=== PATIENT | male | born 1960 | race Caucasian/White ===

== ENCOUNTER 2021-04-05 15:44 | Observation (INO) ==
[2021-04-05 20:13] LABS: Basophils # (auto) 0.02 K/uL (0-0.2); Basophils % (auto) 0.1 %; Eosinophils # (auto) 0.05 K/uL (0-0.5); Eosinophils % (auto) 0.3 %; Hematocrit (blood only) 46.9 % (42-52); Hemoglobin 15.4 g/dL (14.0-18.0); Immature Granulocytes # (auto) 0.04 K/uL (0.00-0.02); Immature Granulocytes % (auto) 0.2 %; Lymphocytes # (auto) 1.83 K/uL (1.2-3.4); Lymphocytes % (auto) 9.6 %; Mean Corpuscular Hgb Conc 32.8 g/dL (32-36); Mean Corpuscular Volume 94.6 fL (80-100); Mean Platelet Volume 9.2 fL (7.4-10.4); Monocytes # (auto) 1.76 K/uL (0.11-0.59); Monocytes % (auto) 9.2 %; Neutrophils # (auto) 15.46 K/uL (1.4-6.5); Neutrophils % (auto) 80.6 %; Platelet Count 243 K/uL (130-400); RDW Coefficient of Variation 12.6 % (11.5-14.5); RDW Standard Deviation 43.5 fL (36.4-46.3); Red Blood Count 4.96 M/uL (4.7-6.1); White Blood Count 19.16 K/uL (4.8-10.8)
[2021-04-05 20:45] LABS: BUN Creatinine Ratio 21.1 (10-20); Calcium 9.3 mg/dl (8.5-10.1); Creatinine Clr Calc Pharmacy 79.8 ml/min; Est GFR (African American) 97.8 ml/min; Est GFR (Non-African American) 84.4 ml/min; Potassium 4.4 mmol/L (3.5-5.1)
[2021-04-05 20:48] LABS: Albumin Globulin Ratio 0.7 (0.9-2); Bilirubin,Total 1.2 mg/dl (0.2-1); Globulin 4.5 gm/dl (2.5-4.0); Total Protein 7.5 gm/dl (6.4-8.2)
[2021-04-05 20:59] LABS: Appearance Urine Clear (Clear); Bacteria Urine Automated Negative (Negative); Bilirubin Urine Negative (Negative); Blood Urine Negative (Negative); Color Urine Dark Yellow; Epithelial Cell Urine Auto 20-30 /lpf (0-5); Glucose Urine UA Negative (Negative); Ketones Urine 2+ (Negative); Leukocyte Esterase Urine Trace (Negative); Nitrite Urine Negative (Negative); Protein Urine 2+ (Negative); Specific Gravity Urine 1.028 (1.000-1.030); Urobilinogen Urine Positive (Negative)
[2021-04-05] MEDS ORDERED: ONDANSETRON INJ 2 MG/ML 2 ML VIAL IV STA (21:37)
[2021-04-05] MEDS ORDERED: SODIUM CHLORIDE 0.9% 1000ML 1,000 ML IV SCH (21:45)
--- NOTE | 2021-04-05 21:46 | Emergency Department Note ---
History of Present Illness General Chief complaint: Abdominal Pain Stated complaint: ABDOMINAL PAIN, APPENDIX OR GALLBLADDER Time Seen by Provider: 04/05/21 21:32 History of Present Illness Maximum Pain Intensity: 7 This is a 61-year-old male presenting to the emergency department for evaluation of right-sided abdominal pain that began 3 or 4 days ago. The patient does not have a history of abdominal surgery. He is currently incarcerated at [facility]. The patient has had some ibuprofen with mild improvement of symptoms today. He has not had anything to eat since breakfast as eating and drinking seems to make his symptoms worse. The patient has not had known COVID-19 infection in the past, and is vaccinated. The patient is usually healthy taking medication for GERD and to help with sleep at night. He rates his discomfort a 7/10, dull, and nonradiating on the right side of his abdomen. Home Medications Medication Instructions Recorded Confirmed Type aspirin 81 mg tablet,delayed 81 mg PO DAILY 04/05/21 04/05/21 History release levalbuterol tartrate 45 2 inh INHALATION Q4H PRN 04/05/21 04/05/21 History mcg/actuation aerosol inhaler (Xopenex HFA) omeprazole 20 mg capsule,delayed 20 mg PO DAILY 04/05/21 04/05/21 History release prazosin 1 mg capsule 1 mg PO HS 04/05/21 04/05/21 History prazosin 2 mg capsule 2 mg PO HS 04/05/21 04/05/21 History prazosin 5 mg capsule 5 mg PO HS 04/05/21 04/05/21 History trazodone 50 mg tablet 50 mg PO HS 04/05/21 04/05/21 History Allergies Allergy/AdvReac Type Severity Reaction Status Date / Time acetaminophen [From Tylenol] AdvReac Intermediate ABD PAIN, Verified 04/05/21 21:55 CRAMPING Past Med/Surg History Medical History GERD (gastroesophageal reflux disease) Under care of retirement service Surgical History No significant past surgical history Social History Smoking Status: Former smoker Hx Alcohol Use: No Hx Substance Use: No Preferred Language: Mohawk Communication Ability: Effective Javascript Application Developer Required: No Beliefs That Will Affect Care: None Current Living Situation: Other Current Living Situation Comment: correctional facility Other Information That Helps Us Care for You: No Feels Safe at Home: Yes Safety Concerns: Feels Safe At This Time Assistive Devices: None Review of Systems A total of 10 systems reviewed and were otherwise negative Physical Exam Vital Signs Vital Signs - 24 hr 04/05/21 16:19 04/05/21 23:28 Pulse Rate 79 84 Respiratory Rate 20 17 Respiratory Effort / Characteristics Non-Labored Spontaneous Respiratory Depth Normal Blood Pressure 131/82 148/88 H Blood Pressure Mean 98 108 Blood Pressure Position Sitting Pulse Oximetry 97 95 Oxygen Delivery Method Room Air Sepsis Recent Fever Within 48 Hours No Sepsis New/Unexplained Change in Mental Status N/A Sepsis Action Taken by Nursing No Action Required VITALS: Vitals are noted on the nurse's note and reviewed by myself. Vital signs stable. GENERAL: Well-developed, well-nourished, white male, who is in no acute distress and resting comfortably. Patient is cooperative with the examination. 2 corrections officers are present at bedside. HEAD: Normocephalic atraumatic. HEART: Regular rate and rhythm without murmurs gallops or rubs. LUNGS: Clear to auscultation bilaterally without wheezes, rales or rhonchi. No retractions or accessory muscle use. ABDOMEN: Positive normal bowel sounds x 4. Soft with distinct right-sided tenderness. MUSCULOSKELETAL: No muscle atrophy, erythema, or edema noted. Full range of motion in all extremities. NEURO: Patient was alert and oriented to person place and time. CN II through XII grossly intact. Course Administered Medications Enoxaparin Sodium (Enoxaparin Inj 40 Mg/0.4 Ml Syr) 40 mg SQ DAILY [facility] Stop: 05/06/21 03:14 Last Admin: 04/06/21 03:20 Dose: Not Given Documented by: [id number] Piperacillin Sod/Tazobactam (Sod 3.375 gm/ Dextrose) 115 mls @ 28.75 mls/hr IV Q8H [facility]; Protocol Stop: 04/16/21 07:59 Last Admin: 04/06/21 08:00 Dose: 28.8 mls/hr Documented by: Lactated Ringer's (Lr) 1,000 mls @ 100 mls/hr IV .Q10H [facility] Stop: 05/06/21 02:59 Last Admin: 04/06/21 03:52 Dose: 100 mls/hr Documented by: [id number] Ibuprofen (Ibuprofen 800 Mg Tab) 800 mg PO TID PRN PRN Reason: Fever Stop: 05/06/21 02:57 Last Admin: 04/06/21 03:37 Dose: 800 mg Documented by: [id number] Morphine Sulfate (Morphine Sulfate 4 Mg/Ml 1 Ml Carp\Vial) 4 mg IV Q30M PRN PRN Reason: Pain Stop: 04/19/21 21:36 Last Admin: 04/06/21 00:54 Dose: 4 mg Documented by: [id number] Admin: 04/05/21 21:51 Dose: 4 mg Documented by: [id number] Morphine Sulfate (Morphine Sulfate 4 Mg/Ml 1 Ml Carp\Vial) 4 mg IV Q3H PRN PRN Reason: Pain (6,7,8,9,10) Stop: 04/20/21 02:13 Last Admin: 04/06/21 03:37 Dose: 4 mg Documented by: [id number] Discontinued Medications Sodium Chloride (Nss 1000ml) 1,000 mls @ 999 mls/hr IV .Q1H1M MARITZA Stop: 04/05/21 22:45 Last Infusion: 04/05/21 22:38 Dose: 0 mls/hr Documented by: [id number] Admin: 04/05/21 21:51 Dose: 999 mls/hr Documented by: [id number] Cefoxitin Sodium (Mefoxin) 2,000 mg in 60 mls @ 100 mls/hr IV NOW STA Stop: 04/05/21 23:15 Last Infusion: 04/06/21 00:54 Dose: 100 mls/hr Documented by: [id number] Admin: 04/05/21 23:42 Dose: 100 mls/hr Documented by: [id number] Piperacillin Sod/Tazobactam (Sod 4.5 gm/ Dextrose) 120 mls @ 200 mls/hr IV NOW ONE; Protocol Stop: 04/06/21 03:35 Last Infusion: 04/06/21 03:45 Dose: 0 mls/hr Documented by: [id number] Admin: 04/06/21 03:08 Dose: 200 mls/hr Documented by: [id number] Ondansetron HCl (Ondansetron Inj 2 Mg/Ml 2 Ml Vial) 4 mg IV NOW STA Stop: 04/05/21 21:38 Last Admin: 04/05/21 21:51 Dose: 4 mg Documented by: [id number] Medical Decision Making Differential Diagnosis Differential diagnosis: Etiologies such as biliary colic, cholecystitis, hepatitis, pancreatitis, cardiac disease, pancreatitis, gastritis, peptic ulcer disease, appendicitis, cystitis, diverticulitis, mesenteric ischemia, inflammatory bowel disease, ileus, bowel obstruction, testicular/adnexal torsion, aortic pathology, shingles, as well as others were considered Laboratory Data Result diagrams: 04/06/21 06:34 04/06/21 06:34 Lab Results 04/05/21 04/05/21 04/05/21 Range/Units 19:48 19:48 21:53 WBC 19.16 H (4.8-10.8) K/uL RBC 4.96 (4.7-6.1) M/uL Hgb 15.4 (14.0-18.0) g/dL Hct 46.9 (42-52) % MCV 94.6 (80-100) fL MCH 31.0 (25-34) pg MCHC 32.8 (32-36) g/dL RDW Std Deviation 43.5 (36.4-46.3) fL RDW Coeff of Luz Maria 12.6 (11.5-14.5) % Plt Count 243 (130-400) K/uL MPV 9.2 (7.4-10.4) fL Immature Gran % (Auto) 0.2 % Neut % (Auto) 80.6 % Lymph % (Auto) 9.6 % [place] % (Auto) 9.2 % Eos % (Auto) 0.3 % Baso % (Auto) 0.1 % Neut # (Auto) 15.46 H (1.4-6.5) K/uL Lymph # (Auto) 1.83 (1.2-3.4) K/uL [place] # (Auto) 1.76 H (0.11-0.59) K/uL Eos # (Auto) 0.05 (0-0.5) K/uL Baso # (Auto) 0.02 (0-0.2) K/uL Immature Gran # (Auto) 0.04 H (0.00-0.02) K/uL Sodium 137 (136-145) mmol/L Potassium 4.4 (3.5-5.1) mmol/L Chloride 105 (98-107) mmol/L Carbon Dioxide 25 (21-32) mmol/L Anion Gap 7.0 (3-11) BUN 20 H (7-18) mg/dl Creatinine 0.96 (0.6-1.4) mg/dl Est Cr Clr Drug Dosing 79.8 ml/min Est GFR ( Amer) 97.8 ml/min Est GFR (Non-Af Amer) 84.4 ml/min BUN/Creatinine Ratio 21.1 H (10-20) Glucose 97 (70-99) mg/dl Calcium 9.3 (8.5-10.1) mg/dl Total Bilirubin 1.2 H (0.2-1) mg/dl AST 17 (15-37) U/L ALT 21 (12-78) U/L Alkaline Phosphatase 73 (45-117) U/L Total Protein 7.5 (6.4-8.2) gm/dl Albumin 3.0 L (3.4-5.0) gm/dl Globulin 4.5 H (2.5-4.0) gm/dl Albumin/Globulin Ratio 0.7 L (0.9-2) Amylase 38 (25-115) U/L Lipase 103 (73-393) U/L COVID-19 Eval Order Covid19 at [facility] SARS-CoV-2 (PCR) (Negative) 04/05/21 Range/Units 21:53 WBC (4.8-10.8) K/uL RBC (4.7-6.1) M/uL Hgb (14.0-18.0) g/dL Hct (42-52) % MCV (80-100) fL MCH (25-34) pg MCHC (32-36) g/dL RDW Std Deviation (36.4-46.3) fL RDW Coeff of Luz Maria (11.5-14.5) % Plt Count (130-400) K/uL MPV (7.4-10.4) fL Immature Gran % (Auto) % Neut % (Auto) % Lymph % (Auto) % [place] % (Auto) % Eos % (Auto) % Baso % (Auto) % Neut # (Auto) (1.4-6.5) K/uL Lymph # (Auto) (1.2-3.4) K/uL [place] # (Auto) (0.11-0.59) K/uL Eos # (Auto) (0-0.5) K/uL Baso # (Auto) (0-0.2) K/uL Immature Gran # (Auto) (0.00-0.02) K/uL Sodium (136-145) mmol/L Potassium (3.5-5.1) mmol/L Chloride (98-107) mmol/L Carbon Dioxide (21-32) mmol/L Anion Gap (3-11) BUN (7-18) mg/dl Creatinine (0.6-1.4) mg/dl Est Cr Clr Drug Dosing ml/min Est GFR ( Amer) ml/min Est GFR (Non-Af Amer) ml/min BUN/Creatinine Ratio (10-20) Glucose (70-99) mg/dl Calcium (8.5-10.1) mg/dl Total Bilirubin (0.2-1) mg/dl AST (15-37) U/L ALT (12-78) U/L Alkaline Phosphatase (45-117) U/L Total Protein (6.4-8.2) gm/dl Albumin (3.4-5.0) gm/dl Globulin (2.5-4.0) gm/dl Albumin/Globulin Ratio (0.9-2) Amylase (25-115) U/L Lipase (73-393) U/L COVID-19 Eval Order SARS-CoV-2 (PCR) NEGATIVE (Negative) Imaging Data Radiologist's Impression: Abdomen/Pelvis CT 04/05/21 21:37 CT abd pelvis wo con CLINICAL INDICATION: Right-sided abdominal pain. TECHNIQUE: Helical axial images of the abdomen and pelvis were obtained and displayed at 5 and 1 mm intervals. Automated dose lowering techniques and/or adjustment according to patient size were utilized for this exam. This exam was performed with intravenous contrast. COMPARISON: None available at the time of this dictation. FINDINGS: Lower chest: Bibasilar atelectasis is seen. Liver: Unremarkable. No focal lesions are seen. Gallbladder and biliary tree: There is diffuse enlargement and wall thickening of the gallbladder. The wall measures approximately 7 mm in diameter. A large gallstone is seen at the gallbladder neck. No intra- or extrahepatic biliary ductal dilation. Pancreas: Unremarkable, no focal lesions. Spleen: Unremarkable. Adrenals: Unremarkable. Kidneys and ureters: Unremarkable. Bladder: Unremarkable. Reproductive organs: Prostatic calcifications are seen which may represent prior hemorrhage or granulomatous disease. Prostatomegaly is seen. Bowel: Unremarkable. Lymph nodes Retroperitoneal: Unremarkable. Mesenteric: Unremarkable. Pelvic: Unremarkable. Peritoneum: Normal Vessels: Atherosclerotic calcifications are seen. Abdominal wall: Unremarkable. Bones: Degenerative changes in the visualized spine. Levoscoliosis is seen in the lumbar spine. IMPRESSION: Cholecystitis with gallstone noted in the gallbladder neck. ACT 112: Negative or not required by law. Electronically signed by: Anson Padilla M.D. 04/06/2021 7:09 AM MDM Narrative Physical exam and history were performed. Nursing notes, EMR, and Medication List were personally reviewed. Patient appears to have right-sided abdominal pain bringing him to the ER. The patient presents to the department during a period of very high ER volume and extended wait times. Nursing protocol orders have been initiated prior to my evaluation of care, and he is noted to have a white blood cell count elevation at 19,000. On exam he is tender in the right side abdomen, and it is difficult to discern whether this is true right upper quadrant or right lower quadrant. Regardless IV access was established and labs were obtained. He was hydrated with normal saline and given IV morphine and IV Zofran for comfort. Covid swab is performed and the patient was sent to CT scan for further evaluation of his symptoms. CT scan is performed and reviewed by myself and radiology. CT scan does reveal acute cholecystitis. The case was discussed with the on-call general surgeon, Dr. Alford, who will evaluate the patient at bedside. Covid swab was performed. The patient was started on Mefoxin here in the ER. Please see the surgical note for further patient course, plan, and disposition. The chart was completed utilizing [employer] Voice Recognition Software. Grammatical errors, random word insertions, pronoun errors, and incomplete sentences are an occasional consequence of this system due to software limitations, ambient noise, and hardware issues. Any formal questions or concerns about the content, text, or information contained within the body of this dictation should be directly addressed to the provider for clarification. . Impression & Plan Acute cholecystitis Discharge Plan Visit Data Chief Complaint: Abdominal Pain Stated Complaint: ABDOMINAL PAIN, APPENDIX OR GALLBLADDER ED Provider: Elijah Linares ED Midlevel Provider: Blaine Reilly Discharge Problem: Acute cholecystitis Patient Disposition: Admitted As Inpatient Discharge Instructions Interventions: ED Discharge Assessment Last Done: 04/06/21 02:00
[2021-04-05] MEDS: MoRPHine SULFATE 4 MG/ML 1 ML CARP\\VIAL IV PRN (21:51)
[2021-04-05] MEDS ORDERED: cefOXitin 2,000 MG/60 ML BAG IV STA (22:40)
--- NOTE | 2021-04-06 00:04 | History & Physical Report ---
Date of Service April 06, 2021 Assessment & Plan (1) Acute cholecystitis: Plan: 61-year-old gentleman with acute cholecystitis. I discussed the risks and benefits of a laparoscopic cholecystectomy, possible open. The risks include: Bleeding, infection, leak, obstruction, injury to the surrounding structures including the common bile duct, need for open or further procedures, diarrhea. All his questions were answered, and he is agreeable to proceed. We will admit him to the hospital, place him on IV fluids, antibiotics, pain control. We will take him to the operating room at the earliest convenience in the morning. History of Present Illness Chief Complaint: Acute cholecystitis Primary Care Provider: DONNA Osito 61-year-old gentleman presents with 4-day history of right upper quadrant pain. He noted some chills. He also noted a mass in his right upper quadrant. He denies nausea or vomiting. He has never had symptoms like this in the past. He denies acholic stools, pruritus, chest pain, shortness of breath. He denies dark urine or jaundice. He is having normal bowel movements. A CT scan demonstrates significant inflammation around the gallbladder, distended gallbladder, large stone. Allergies Allergy/AdvReac Type Severity Reaction Status Date / Time acetaminophen [From Tylenol] AdvReac Intermediate ABD PAIN, Verified 04/05/21 21:55 CRAMPING Home Medications Medication Instructions Recorded Confirmed Type aspirin 81 mg tablet,delayed 81 mg PO DAILY 04/05/21 04/05/21 History release levalbuterol tartrate 45 2 inh INHALATION Q4H PRN 04/05/21 04/05/21 History mcg/actuation aerosol inhaler (Xopenex HFA) omeprazole 20 mg capsule,delayed 20 mg PO DAILY 04/05/21 04/05/21 History release prazosin 1 mg capsule 1 mg PO HS 04/05/21 04/05/21 History prazosin 2 mg capsule 2 mg PO HS 04/05/21 04/05/21 History prazosin 5 mg capsule 5 mg PO HS 04/05/21 04/05/21 History trazodone 50 mg tablet 50 mg PO HS 04/05/21 04/05/21 History Past Med/Surg History Medical History GERD (gastroesophageal reflux disease) Under care of nursing home service Surgical History No significant past surgical history Social History Smoking Status: Former smoker Feels Safe at Home: Yes Review of Systems Review of Systems: All systems reviewed & are unremarkable except as noted in HPI & below Physical Exam Constitutional: WD/WN, vitals as above Eyes: PERRL, conjunctivae normal, anicteric sclerae Neck: trachea midline, no thyromegaly Respiratory: normal respiratory effort, lungs clear to auscultation Cardiovascular: RRR, no murmur, no edema Gastrointestinal (Abdomen): Inspection/Auscultation: abdomen normal to inspection; abdomen not distended Percussion/Palpation: + abdomen tender (Right upper quadrant), abdomen soft and + abdominal mass (Right upper quadrant); no guarding and abdomen not rigid Musculoskeletal: Extremities: no cyanosis and no clubbing Skin: no rashes, warm and dry Psychiatric: A+Ox3, euthymic affect Results & Data Results & Data ([facility]) Vital Signs (Past 12 Hours) Vital Signs Pulse Resp BP Pulse Ox 04/05/21 23:28 84 17 148/88 H 95 04/05/21 16:19 79 20 131/82 97 Laboratory Results 04/05/21 04/05/21 04/05/21 Range/Units Unknown 21:53 21:53 WBC (4.8-10.8) K/uL RBC (4.7-6.1) M/uL Hgb (14.0-18.0) g/dL Hct (42-52) % MCV (80-100) fL MCH (25-34) pg MCHC (32-36) g/dL RDW Std Deviation (36.4-46.3) fL RDW Coeff of Luz Maria (11.5-14.5) % Plt Count (130-400) K/uL MPV (7.4-10.4) fL Immature Gran % (Auto) % Neut % (Auto) % Lymph % (Auto) % [place] % (Auto) % Eos % (Auto) % Baso % (Auto) % Neut # (Auto) (1.4-6.5) K/uL Lymph # (Auto) (1.2-3.4) K/uL [place] # (Auto) (0.11-0.59) K/uL Eos # (Auto) (0-0.5) K/uL Baso # (Auto) (0-0.2) K/uL Immature Gran # (Auto) (0.00-0.02) K/uL Sodium (136-145) mmol/L Potassium (3.5-5.1) mmol/L Chloride (98-107) mmol/L Carbon Dioxide (21-32) mmol/L Anion Gap (3-11) BUN (7-18) mg/dl Creatinine (0.6-1.4) mg/dl Est Cr Clr Drug Dosing ml/min Est GFR ( Amer) ml/min Est GFR (Non-Af Amer) ml/min BUN/Creatinine Ratio (10-20) Glucose (70-99) mg/dl Calcium (8.5-10.1) mg/dl Total Bilirubin (0.2-1) mg/dl AST (15-37) U/L ALT (12-78) U/L Alkaline Phosphatase (45-117) U/L Total Protein (6.4-8.2) gm/dl Albumin (3.4-5.0) gm/dl Globulin (2.5-4.0) gm/dl Albumin/Globulin Ratio (0.9-2) Amylase (25-115) U/L Lipase (73-393) U/L Urine Color Dark Yellow Urine Appearance Clear (Clear) Urine pH 7.0 (4.5-7.5) Ur Specific [place] 1.028 (1.000-1.030) Urine Protein 2+ H (Negative) Urine Glucose (UA) Negative (Negative) Urine Ketones 2+ H (Negative) Urine Blood Negative (Negative) Urine Nitrite Negative (Negative) Urine Bilirubin Negative (Negative) Urine Urobilinogen Positive H (Negative) Ur Leukocyte Esterase Trace H (Negative) Urine WBC (Auto) 1-5 (0-5) /hpf Urine RBC (Auto) 5-10 H (0-4) /hpf U Hyaline Cast (Auto) 1-5 (0-5) /lpf U Epithel Cells (Auto) 20-30 H (0-5) /lpf Urine Bacteria (Auto) Negative (Negative) COVID-19 Eval Order Covid19 at [facility] SARS-CoV-2 (PCR) NEGATIVE (Negative) 04/05/21 04/05/21 Range/Units 19:48 19:48 WBC 19.16 H (4.8-10.8) K/uL RBC 4.96 (4.7-6.1) M/uL Hgb 15.4 (14.0-18.0) g/dL Hct 46.9 (42-52) % MCV 94.6 (80-100) fL MCH 31.0 (25-34) pg MCHC 32.8 (32-36) g/dL RDW Std Deviation 43.5 (36.4-46.3) fL RDW Coeff of Luz Maria 12.6 (11.5-14.5) % Plt Count 243 (130-400) K/uL MPV 9.2 (7.4-10.4) fL Immature Gran % (Auto) 0.2 % Neut % (Auto) 80.6 % Lymph % (Auto) 9.6 % [place] % (Auto) 9.2 % Eos % (Auto) 0.3 % Baso % (Auto) 0.1 % Neut # (Auto) 15.46 H (1.4-6.5) K/uL Lymph # (Auto) 1.83 (1.2-3.4) K/uL [place] # (Auto) 1.76 H (0.11-0.59) K/uL Eos # (Auto) 0.05 (0-0.5) K/uL Baso # (Auto) 0.02 (0-0.2) K/uL Immature Gran # (Auto) 0.04 H (0.00-0.02) K/uL Sodium 137 (136-145) mmol/L Potassium 4.4 (3.5-5.1) mmol/L Chloride 105 (98-107) mmol/L Carbon Dioxide 25 (21-32) mmol/L Anion Gap 7.0 (3-11) BUN 20 H (7-18) mg/dl Creatinine 0.96 (0.6-1.4) mg/dl Est Cr Clr Drug Dosing 79.8 ml/min Est GFR ( Amer) 97.8 ml/min Est GFR (Non-Af Amer) 84.4 ml/min BUN/Creatinine Ratio 21.1 H (10-20) Glucose 97 (70-99) mg/dl Calcium 9.3 (8.5-10.1) mg/dl Total Bilirubin 1.2 H (0.2-1) mg/dl AST 17 (15-37) U/L ALT 21 (12-78) U/L Alkaline Phosphatase 73 (45-117) U/L Total Protein 7.5 (6.4-8.2) gm/dl Albumin 3.0 L (3.4-5.0) gm/dl Globulin 4.5 H (2.5-4.0) gm/dl Albumin/Globulin Ratio 0.7 L (0.9-2) Amylase 38 (25-115) U/L Lipase 103 (73-393) U/L Urine Color Urine Appearance (Clear) Urine pH (4.5-7.5) Ur Specific [place] (1.000-1.030) Urine Protein (Negative) Urine Glucose (UA) (Negative) Urine Ketones (Negative) Urine Blood (Negative) Urine Nitrite (Negative) Urine Bilirubin (Negative) Urine Urobilinogen (Negative) Ur Leukocyte Esterase (Negative) Urine WBC (Auto) (0-5) /hpf Urine RBC (Auto) (0-4) /hpf U Hyaline Cast (Auto) (0-5) /lpf U Epithel Cells (Auto) (0-5) /lpf Urine Bacteria (Auto) (Negative) COVID-19 Eval Order SARS-CoV-2 (PCR) (Negative) Code Status & VTE Plan VTE Prophylaxis Plan VTE Prophylaxis will be ordered: Yes
[2021-04-06] MEDS: MoRPHine SULFATE 4 MG/ML 1 ML CARP\\VIAL IV PRN (00:54)
[2021-04-06] MEDS ORDERED: diphenhydrAMINE Capsule 25 MG CAP PO PRN (02:14)
[2021-04-06] MEDS ORDERED: PIPERACILL/TAZOBAC CONSULT ACTIVE PRN (02:14)
[2021-04-06] MEDS ORDERED: ONDANSETRON INJ 2 MG/ML 2 ML VIAL IV PRN ×2 (02:14→08:37)
[2021-04-06] MEDS ORDERED: MoRPHine SULFATE 4 MG/ML 1 ML CARP\\VIAL IV PRN (02:14)
[2021-04-06] MEDS ORDERED: PIPERACILLIN/TAZOBACTAM 4.5 GM in DEXTROSE 5% 100 ML IV ONE (03:00)
[2021-04-06] MEDS: ENOXAPARIN INJ 40 MG/0.4 ML SYR SQ SCH (03:20)
[2021-04-06] MEDS: IBUPROFEN 800 MG TAB PO PRN ×3 (03:37→21:23)
[2021-04-06] MEDS: LACTATED RINGER'S 1,000 ML IV SCH ×3 (03:52→23:12)
[2021-04-06] MEDS ORDERED: ACETAMINOPHEN 1000 MG/100 ML IV IV ONE (06:32)
[2021-04-06 06:58] LABS: Basophils # (auto) 0.02 K/uL (0-0.2); Basophils % (auto) 0.1 %; Eosinophils # (auto) 0.02 K/uL (0-0.5); Eosinophils % (auto) 0.1 %; Hematocrit (blood only) 42.4 % (42-52); Hemoglobin 13.8 g/dL (14.0-18.0); Immature Granulocytes # (auto) 0.03 K/uL (0.00-0.02); Immature Granulocytes % (auto) 0.2 %; Lymphocytes # (auto) 1.58 K/uL (1.2-3.4); Lymphocytes % (auto) 10.1 %; Mean Corpuscular Hemoglobin 31.1 pg (25-34); Mean Corpuscular Hgb Conc 32.5 g/dL (32-36); Mean Corpuscular Volume 95.5 fL (80-100); Mean Platelet Volume 9.1 fL (7.4-10.4); Monocytes # (auto) 1.44 K/uL (0.11-0.59); Monocytes % (auto) 9.2 %; Neutrophils # (auto) 12.58 K/uL (1.4-6.5); Neutrophils % (auto) 80.3 %; Platelet Count 235 K/uL (130-400); RDW Coefficient of Variation 12.6 % (11.5-14.5); RDW Standard Deviation 44.1 fL (36.4-46.3); Red Blood Count 4.44 M/uL (4.7-6.1); White Blood Count 15.67 K/uL (4.8-10.8)
--- NOTE | 2021-04-06 07:10 | CT Scan Report ---
CT abd pelvis wo con CLINICAL INDICATION: Right-sided abdominal pain. TECHNIQUE: Helical axial images of the abdomen and pelvis were obtained and displayed at 5 and 1 mm i ntervals. Automated dose lowering techniques and/or adjustment according to patient size were utilize d for this exam. This exam was performed with intravenous contrast. COMPARISON: None available at the time of this dictation. FINDINGS: Lower chest: Bibasilar atelectasis is seen. Liver: Unremarkable. No focal lesions are seen. Gallbladder and biliary tree: There is diffuse enlargement and wall thickening of the gallbladder. Th e wall measures approximately 7 mm in diameter. A large gallstone is seen at the gallbladder neck. No intra- or extrahepatic biliary ductal dilation. Pancreas: Unremarkable, no focal lesions. Spleen: Unremarkable. Adrenals: Unremarkable. Kidneys and ureters: Unremarkable. Bladder: Unremarkable. Reproductive organs: Prostatic calcifications are seen which may represent prior hemorrhage or granul omatous disease. Prostatomegaly is seen. Bowel: Unremarkable. Lymph nodes Retroperitoneal: Unremarkable. Mesenteric: Unremarkable. Pelvic: Unremarkable. Peritoneum: Normal Vessels: Atherosclerotic calcifications are seen. Abdominal wall: Unremarkable. Bones: Degenerative changes in the visualized spine. Levoscoliosis is seen in the lumbar spine. IMPRESSION: Cholecystitis with gallstone noted in the gallbladder neck. ACT 112: Negative or not required by law. Electronically signed by: Anson Padilla M.D. 04/06/2021 7:09 AM
[2021-04-06 07:33] LABS: Albumin Level 2.5 gm/dl (3.4-5.0); BUN Creatinine Ratio 15.9 (10-20); Calcium 8.7 mg/dl (8.5-10.1); Est GFR (Non-African American) 70.8 ml/min
[2021-04-06 07:36] LABS: Albumin Globulin Ratio 0.6 (0.9-2); Bilirubin,Total 1.6 mg/dl (0.2-1); Globulin 4.2 gm/dl (2.5-4.0); Total Protein 6.7 gm/dl (6.4-8.2)
[2021-04-06] MEDS: PIPERACILLIN/TAZOBACTAM 3.375 GM in DEXTROSE 5% 100 ML IV SCH ×3 (08:00→23:12)
[2021-04-06] MEDS ORDERED: HYDROmorphone INJ 1 MG/ML SYRINGE IV PRN (08:37)
[2021-04-06] MEDS ORDERED: PROMETHAZINE HCL 12.5 MG in SODIUM CHLORIDE 0.9% 50 ML IV PRN (08:37)
[2021-04-06] MEDS ORDERED: ATROPINE SULFATE 0.1 MG/ML 10ML SYR IV PRN (08:37)
[2021-04-06] MEDS ORDERED: ePHEDrine sulfate 50 MG/ML AMP IV PRN (08:37)
--- NOTE | 2021-04-06 08:38 | Anesthesiology Consultation ---
Date of Service April 06, 2021 Assessment & Plan (1) Encounter for pre-operative examination: Chart Review Chart Review: Acceptable Risk for Surgery and Patient NOT seen in Pre Admission Testing Consults Requested none History Surgery Operation Date: 04/06/21 08:20 Proposed Procedures p Laparoscopic Cholecystectomy - Pro Alford MD Height/Weight Height: 5 ft 9 in Weight: 77.1 kg Allergies Allergy/AdvReac Type Severity Reaction Status Date / Time acetaminophen [From Tylenol] AdvReac Intermediate ABD PAIN, Verified 04/05/21 21:55 CRAMPING Medications Home Medications Medication Instructions Recorded Confirmed Last Taken aspirin 81 mg tablet,delayed 81 mg PO DAILY 04/05/21 04/05/21 03/23/21 release levalbuterol tartrate 45 2 inh INHALATION Q4H PRN 04/05/21 04/05/21 Unknown mcg/actuation aerosol inhaler (Xopenex HFA) omeprazole 20 mg capsule,delayed 20 mg PO DAILY 04/05/21 04/05/21 03/23/21 release prazosin 1 mg capsule 1 mg PO HS 04/05/21 04/05/21 04/04/21 prazosin 2 mg capsule 2 mg PO HS 04/05/21 04/05/21 04/04/21 prazosin 5 mg capsule 5 mg PO HS 04/05/21 04/05/21 04/04/21 trazodone 50 mg tablet 50 mg PO HS 04/05/21 04/05/21 04/04/21 Active Medications Generic Name Dose Route Start Last Admin Trade Name Freq PRN Reason Stop Dose Admin Enoxaparin Sodium 40 mg 04/06/21 03:15 04/06/21 03:20 Enoxaparin Inj 40 Mg/0.4 Ml Syr SQ 05/06/21 03:14 Not Given DAILY MARITZA Piperacillin Sod/Tazobactam 115 mls @ 28.75 mls/hr 04/06/21 08:00 04/06/21 08:00 Sod 3.375 gm/ Dextrose IV 04/16/21 07:59 28.8 mls/hr Q8H MARITZA Administration Protocol Lactated Ringer's 1,000 mls @ 100 mls/hr 04/06/21 03:00 04/06/21 03:52 Lr IV 05/06/21 02:59 100 mls/hr .Q10H MARITZA Administration Ibuprofen 800 mg 04/06/21 02:58 04/06/21 03:37 Ibuprofen 800 Mg Tab PO 05/06/21 02:57 800 mg TID PRN Administration Fever Morphine Sulfate 4 mg 04/05/21 21:37 04/06/21 00:54 Morphine Sulfate 4 Mg/Ml 1 Ml Carp\Vial IV 04/19/21 21:36 4 mg Q30M PRN Administration Pain Morphine Sulfate 4 mg 04/06/21 02:14 04/06/21 03:37 Morphine Sulfate 4 Mg/Ml 1 Ml Carp\Vial IV 04/20/21 02:13 4 mg Q3H PRN Administration Pain (6,7,8,9,10) NPO Date Last Intake of Fluids: 04/05/21 Time Last Intake of Fluids: 23:59 Date Last Intake of Solids: 04/05/21 Time Last Intake of Solids: 23:59 Past Medical History Medical History GERD (gastroesophageal reflux disease) Under care of [facility] service Exercise / Class Metabolic Activity II 4-5 Yardwork/Stairs/Walk up [place] Past Surgical History Surgical History No significant past surgical history bunion removal Social History Smoking Status: Former smoker Hx Alcohol Use: No Hx Substance Use: No substance use type: does not use Physical Exam Vital Signs Last Vital Signs Temp 36.5 C 04/06/21 09:43 Pulse 72 04/06/21 09:43 Resp 16 04/06/21 09:43 BP 125/79 04/06/21 09:43 Pulse Ox 98 04/06/21 09:43 Testing Laboratory Results 04/06/21 06:34 04/06/21 06:34 Urine Color Dark Yellow 04/05/21 Unknown Urine Appearance Clear (Clear) 04/05/21 Unknown Urine pH 7.0 (4.5-7.5) 04/05/21 Unknown Ur Specific [place] 1.028 (1.000-1.030) 04/05/21 Unknown Urine Protein 2+ (Negative) H 04/05/21 Unknown Urine Glucose (UA) Negative (Negative) 04/05/21 Unknown Urine Ketones 2+ (Negative) H 04/05/21 Unknown Urine Nitrite Negative (Negative) 04/05/21 Unknown Ur Leukocyte Esterase Trace (Negative) H 04/05/21 Unknown Urine WBC (Auto) 1-5 /hpf (0-5) 04/05/21 Unknown Urine RBC (Auto) 5-10 /hpf (0-4) H 04/05/21 Unknown U Hyaline Cast (Auto) 1-5 /lpf (0-5) 04/05/21 Unknown U Epithel Cells (Auto) 20-30 /lpf (0-5) H 04/05/21 Unknown Urine Bacteria (Auto) Negative (Negative) 04/05/21 Unknown Electrocardiogram Date: 04/06/21 Findings: + NSR @ normal ecg
[2021-04-06] MEDS ORDERED: BUPIVACAINE 0.25% 30 ML VIAL ONE (09:11)
[2021-04-06] MEDS ORDERED: EPINEPHrine INJ 1 MG/ML AMP ONE (09:11)
[2021-04-06] MEDS ORDERED: LIDOCAINE 2% 2 ML VIAL/AMP(20MG/ML) INFIL ONE ×2 (09:14)
[2021-04-06] MEDS ORDERED: PROPOFOL IV EMULSION 10 MG/ML 20 ML VIAL IV ONE (09:14)
[2021-04-06] MEDS ORDERED: ONDANSETRON INJ 2 MG/ML 2 ML VIAL ONE (09:14)
[2021-04-06] MEDS ORDERED: LARYING-O-JET KIT (LTA) ONE ×2 (09:14→11:08)
[2021-04-06] MEDS ORDERED: fentaNYL citrate 100 MCG/2 ML VIAL ONE ×2 (09:14→11:01)
[2021-04-06] MEDS ORDERED: ROCURONIUM BROMIDE 10 MG/ML 5 ML VIAL IV ONE ×4 (09:14→11:08)
[2021-04-06] MEDS ORDERED: MIDAZOLAM HCL 1 MG/ML 2ML VIAL ONE (09:14)
[2021-04-06] MEDS ORDERED: DEXAMETHASONE SOD INJ 4 MG/ML VIAL ONE (09:14)
--- NOTE | 2021-04-06 09:22 | Surgery Progress Note ---
Date of Service April 06, 2021 Assessment & Plan (1) Acute cholecystitis: Plan: 61-year-old gentleman with acute cholecystitis. I discussed the risks and benefits of a laparoscopic cholecystectomy, possible open. The risks include: Bleeding, infection, leak, obstruction, injury to the surrounding structures including the common bile duct, need for open or further procedures, diarrhea. All his questions were answered, and he is agreeable to proceed. To OR now for lap cholecystectomy Admission and Anticipated Discharge Date Admission Date: April 05, 2021 Subjective 61-year-old gentleman with cute cholecystitis, hospital day 2. He states that his pain is completely resolved. He denies any nausea or vomiting. He has been on antibiotics. He denies fevers or chills. Physical Exam Constitutional: WD/WN, vitals as above Eyes: PERRL, conjunctivae normal, anicteric sclerae Neck: trachea midline, no thyromegaly Respiratory: normal respiratory effort, lungs clear to auscultation Gastrointestinal (Abdomen): Inspection/Auscultation: abdomen normal to inspection; abdomen not distended Percussion/Palpation: + abdomen tender (Right upper quadrant), abdomen soft and + abdominal mass (Right upper quadrant); no guarding and abdomen not rigid Musculoskeletal: Extremities: no cyanosis and no clubbing Skin: no rashes, warm and dry Psychiatric: A+Ox3, euthymic affect Results & Data ([facility]) Vital Signs (Past 12 Hours) Vital Signs Temp Pulse Pulse Resp BP BP Pulse Ox 04/06/21 08:01 36.6 C 71 16 122/79 99 04/06/21 05:50 37.0 C 04/06/21 02:37 38.7 C H 91 H 16 154/75 H 95 04/06/21 02:00 38.7 C H 91 H 15 154/75 H 95 04/06/21 01:00 95 H 18 159/97 H 99 04/06/21 00:00 84 16 133/75 96 04/05/21 23:28 84 17 148/88 H 95
[2021-04-06] MEDS ORDERED: SURGICEL ABSORB HEMOSTAT 2IN X 14IN TOP ONE (11:07)
--- NOTE | 2021-04-06 11:26 | Post Operative Brief Note ---
Immediate Post Op Note v1 Date of Surgery April 06, 2021 Pre & Post Diagnosis Operation Date: 04/06/21 08:20 Pre-Op Diagnosis: Acute cholecystitis Post-Op Diagnosis: Acute cholecystitis I identified the patient and participated in the time-out.: Yes Procedure Operation Date: 04/06/21 08:20 Actual Procedures p Laparoscopic Cholecystectomy(Not Applicable) - Pro Alford MD Surgeon Pro Alford MD Pole Peeling Machine Operator Helper DIAMOND Mena, assisted with tissue retraction, camera operation, closure Estimated Blood Loss 15 Findings Consistent with Post-Op Diagnosis
--- NOTE | 2021-04-06 11:31 | Operative Report ---
Post Operative Report Pre & Post Diagnosis Operation Date: 04/06/21 08:20 Pre-Op Diagnosis: Acute cholecystitis Post-Op Diagnosis: Acute cholecystitis I identified the patient and participated in the time-out.: Yes Procedure Operation Date: 04/06/21 08:20 Actual Procedures p Laparoscopic Cholecystectomy(Not Applicable) - Pro Alford MD Surgeon Pro Alford MD Cable Repairer DIAMOND Mena, assisted with tissue retraction, camera operation, closure Estimated Blood Loss 15 Findings Consistent with Post-Op Diagnosis Severe acute cholecystitis, hydrops of the gallbladder with 2.5 cm stone in the neck; severe acute inflammation Specimens Gallbladder Anesthesia Type General Complications No immediate complications Indications Acute cholecystitis Description of Procedure The patient was taken to the operating room, and placed supine on the operating table. A timeout was performed, perioperative antibiotics were administered, SCD boots were placed. After adequate anesthesia and analgesia was obtained, the abdomen was prepped and draped in the normal sterile fashion. Local anesthetic was injected into and around the proposed incision sites. An incision was made with a 15 blade scalpel in the supraumbilical region and carried down to the level of the fascia. The fascia was grasped with a trach hook, and a varies needle was used to enter the abdominal cavity. The abdomen was insufflated to a pressure of 15 mmHg, and a 11 mm trocar was placed in this location. A 10 mm, 30 degree laparoscope was placed into the abdominal cavity, and the abdomen was surveyed. There was a significant inflammatory reaction in the right upper quadrant. Omentum and a loop of small bowel was adhesed to the gallbladder which appeared very distended and taut. Two 5 mm trochars were placed along the right costal margin, and one 5 mm trocar was placed in the subxiphoid region under direct visualization. The gallbladder was drained with an 18-gauge aspiration needle. The fluid was clear and then became purulent. Adhesions of the small bowel, omentum, and duodenum were taken down gently with blunt dissection and judicious use of the electrocautery. The gallbladder was grasped and retracted cephalad and laterally, exposing the triangle of [place]. Dissection began in the triangle with a combination of blunt dissection with the [place] dissector, and judicious use of the hook cautery. The cystic duct and cystic artery were dissected free circumferentially, and a critical view of safety was obtained. The cystic duct and cystic artery were clipped and transected, and the gallbladder was removed from the gallbladder fossa with the hook cautery. The camera was switched to a 5 mm, the gallbladder was placed in an Endo Catch bag, and removed via the supraumbilical port site. The camera was switched back to the 10 mm camera, and the abdomen was surveyed again. Hemostasis was checked and attended with electrocautery as well as Surgicel. The abdomen was copiously irrigated and suctioned free. Again hemostasis was checked and was excellent. All trochars were removed under direct visualization. The abdomen was desufflated. The fascia in the 11 mm port site was closed with a 0 Vicryl suture. The skin was closed with a running 4-0 Monocryl subcuticular stitch. Dermabond was applied. The patient tolerated the procedure without complication, and was transferred in stable condition to the PACU. All instrument, needle, and sponge counts were correct at the end of the case. I attest to the content of the Intraoperative Record and any orders documented therein. Any exceptions are noted below.
[2021-04-06] MEDS: fentaNYL citrate 100 MCG/2 ML VIAL IV PRN ×4 (12:21→12:36)
[2021-04-06] MEDS ORDERED: oxyCODONE/ACETAMINOPHEN 5mg/325mg TAB PO PRN (13:00)
--- NOTE | 2021-04-06 13:53 | Anesthesiology Progress Note ---
Date of Service April 06, 2021 Anesthesia Post Procedure Vital Signs Vital Signs: Temp Pulse Pulse Pulse Resp BP BP 04/06/21 13:28 80 18 04/06/21 13:04 36.9 C 69 16 04/06/21 12:55 73 17 04/06/21 12:45 72 15 04/06/21 12:35 75 16 04/06/21 12:25 73 20 04/06/21 12:15 78 16 04/06/21 12:05 77 20 04/06/21 11:55 71 17 04/06/21 11:48 36.4 C L 73 13 04/06/21 09:43 36.5 C 72 16 125/79 04/06/21 08:01 36.6 C 71 16 122/79 04/06/21 05:50 37.0 C 04/06/21 02:37 38.7 C H 91 H 16 154/75 H 04/06/21 02:00 38.7 C H 91 H 15 154/75 H 04/06/21 01:00 95 H 18 159/97 H 04/06/21 00:00 84 16 133/75 04/05/21 23:28 84 17 148/88 H 04/05/21 16:19 79 20 131/82 BP Pulse Ox 04/06/21 13:28 123/75 95 04/06/21 13:04 129/79 95 04/06/21 12:55 124/75 96 04/06/21 12:45 123/77 94 04/06/21 12:35 127/80 97 04/06/21 12:25 122/76 96 04/06/21 12:15 125/69 94 04/06/21 12:05 119/77 96 04/06/21 11:55 125/68 100 04/06/21 11:48 118/68 99 04/06/21 09:43 98 04/06/21 08:01 99 04/06/21 05:50 04/06/21 02:37 95 04/06/21 02:00 95 04/06/21 01:00 99 04/06/21 00:00 96 04/05/21 23:28 95 04/05/21 16:19 97 Pain Intensity Abdomen: Pain Intensity: 5 Transfer of Care Handoff Completed per policy Notes Mental Status: alert / awake / arousable and participated in evaluation Patient Amnestic to Procedure: Yes Nausea / Vomiting: adequately controlled Pain: adequately controlled Airway Patency, RR, SpO2: stable & adequate BP & HR: stable & adequate Hydration State: stable & adequate Anesthetic Complications: no major complications apparent and Pt Satisfied with anesthetic care
[2021-04-06] MEDS: oxyCODONE HCL IR 5 MG TAB (IMMEDIATE RELEASE) PO PRN (19:38)
[2021-04-06] MEDS: PANTOprazole 40 MG TAB PO SCH (19:39)
[2021-04-06] MEDS ORDERED: Nursing to Pharmacy Communication SCH (20:30)
[2021-04-06] MEDS ORDERED: PRAZOSIN HCL 1 MG CAP PO SCH (21:00)
[2021-04-06] MEDS ORDERED: traZODone HCL 50 MG TAB PO SCH (21:00)
[2021-04-06] MEDS: CALCIUM CARBONATE 500 MG CHEWABLE TAB PO PRN ×2 (21:23→23:21)
[2021-04-07] MEDS: oxyCODONE HCL IR 5 MG TAB (IMMEDIATE RELEASE) PO PRN ×2 (01:41→07:44)
--- NOTE | 2021-04-07 05:30 | Electrocardiogram Report ---
Test Reason : Blood Pressure : / mmHG Vent. Rate : 063 BPM Atrial Rate : 063 BPM P-R Int : 156 ms QRS Dur : 072 ms QT Int : 404 ms P-R-T Axes : 074 005 019 degrees QTc Int : 413 ms Normal sinus rhythm Normal ECG No previous ECGs available Confirmed by Wilberto Hathaway ([id number]) on 04/07/2021 5:29:51 AM Referred By: Osito THOMPSON Confirmed By:Wilberto Hathaway
[2021-04-07] MEDS: ENOXAPARIN INJ 40 MG/0.4 ML SYR SQ SCH (05:55)
[2021-04-07] MEDS: IBUPROFEN 800 MG TAB PO PRN ×2 (05:56→11:49)
[2021-04-07] MEDS: CALCIUM CARBONATE 500 MG CHEWABLE TAB PO PRN (06:02)
[2021-04-07] MEDS: LACTATED RINGER'S 1,000 ML IV SCH (07:44)
[2021-04-07] MEDS: PIPERACILLIN/TAZOBACTAM 3.375 GM in DEXTROSE 5% 100 ML IV SCH (07:44)
[2021-04-07 08:33] LABS: Hematocrit (blood only) 38.8 % (42-52); Hemoglobin 12.9 g/dL (14.0-18.0); Immature Granulocytes # (auto) 0.05 K/uL (0.00-0.02); Immature Granulocytes % (auto) 0.4 %; Lymphocytes # (auto) 1.19 K/uL (1.2-3.4); Lymphocytes % (auto) 8.4 %; Mean Corpuscular Hemoglobin 30.7 pg (25-34); Mean Corpuscular Hgb Conc 33.2 g/dL (32-36); Mean Corpuscular Volume 92.4 fL (80-100); Mean Platelet Volume 9.2 fL (7.4-10.4); Monocytes # (auto) 0.92 K/uL (0.11-0.59); Monocytes % (auto) 6.5 %; Neutrophils # (auto) 11.94 K/uL (1.4-6.5); Neutrophils % (auto) 84.7 %; Platelet Count 241 K/uL (130-400); RDW Coefficient of Variation 12.5 % (11.5-14.5); RDW Standard Deviation 42.3 fL (36.4-46.3)
[2021-04-07] MEDS: PANTOprazole 40 MG TAB PO SCH (08:34)
[2021-04-07 08:59] LABS: Albumin Level 2.2 gm/dl (3.4-5.0); BUN Creatinine Ratio 21.2 (10-20); Creatinine Clr Calc Pharmacy 82.4 ml/min; Est GFR (African American) 101.6 ml/min; Est GFR (Non-African American) 87.7 ml/min; Potassium 4.1 mmol/L (3.5-5.1)
[2021-04-07 09:11] LABS: Albumin Globulin Ratio 0.5 (0.9-2); Bilirubin,Total 0.8 mg/dl (0.2-1); Globulin 4.1 gm/dl (2.5-4.0); Total Protein 6.3 gm/dl (6.4-8.2)
--- NOTE | 2021-04-07 11:09 | Surgery Progress Note ---
Date of Service April 07, 2021 Assessment & Plan (1) Acute cholecystitis: Plan: POD # 1 s/p laparoscopic cholecystectomy -afebrile, vss - moderate postop pain controlled - no n/v Plan: Discharge back to [facility] today Rx for Percocet prn pain and Colace daily Discharge instructions reviewed f/u surgical office in 2-[address] Alford has seen and examined pt, agrees with above. Admission and Anticipated Discharge Date Admission Date: April 05, 2021 Subjective feeling better , preop pain resolved moderate pain at incision sites, controlled with Percocet and ibuprofen no n,v tolerating diet urinating without difficulty no chest pain , SOB Physical Exam Constitutional: WD/WN, vitals as above no acute distress and not ill appearing Gastrointestinal (Abdomen): Inspection/Auscultation: abdomen normal to inspection and + abdominal surgical incision (clean,dry,intact with dermabond); abdomen not distended Percussion/Palpation: + abdomen tender (RUQ and at i ncision sites) and abdomen soft; no guarding and abdomen not rigid Skin: no rashes, warm and dry Psychiatric: Orientation: alert and oriented x 3 Results & Data ([facility]) Vital Signs (Past 12 Hours) Vital Signs Temp Pulse Resp BP Pulse Ox 04/07/21 07:40 36.8 C 60 18 130/66 94 04/07/21 03:11 36.7 C 67 18 123/74 95 04/06/21 23:13 36.8 C 63 18 128/72 95 Laboratory Results 04/07/21 04/07/21 Range/Units 07:53 07:53 WBC 14.10 H (4.8-10.8) K/uL RBC 4.20 L (4.7-6.1) M/uL Hgb 12.9 L (14.0-18.0) g/dL Hct 38.8 L (42-52) % MCV 92.4 (80-100) fL MCH 30.7 (25-34) pg MCHC 33.2 (32-36) g/dL RDW Std Deviation 42.3 (36.4-46.3) fL RDW Coeff of Luz Maria 12.5 (11.5-14.5) % Plt Count 241 (130-400) K/uL MPV 9.2 (7.4-10.4) fL Immature Gran % (Auto) 0.4 % Neut % (Auto) 84.7 % Lymph % (Auto) 8.4 % [place] % (Auto) 6.5 % Eos % (Auto) 0.0 % Baso % (Auto) 0.0 % Neut # (Auto) 11.94 H (1.4-6.5) K/uL Lymph # (Auto) 1.19 L (1.2-3.4) K/uL [place] # (Auto) 0.92 H (0.11-0.59) K/uL Eos # (Auto) 0.00 (0-0.5) K/uL Baso # (Auto) 0.00 (0-0.2) K/uL Immature Gran # (Auto) 0.05 H (0.00-0.02) K/uL Sodium 139 (136-145) mmol/L Potassium 4.1 (3.5-5.1) mmol/L Chloride 107 (98-107) mmol/L Carbon Dioxide 26 (21-32) mmol/L Anion Gap 6.0 (3-11) BUN 20 H (7-18) mg/dl Creatinine 0.93 (0.6-1.4) mg/dl Est Cr Clr Drug Dosing 82.4 ml/min Est GFR ( Amer) 101.6 ml/min Est GFR (Non-Af Amer) 87.7 ml/min BUN/Creatinine Ratio 21.2 H (10-20) Glucose 135 H (70-99) mg/dl Calcium 9.0 (8.5-10.1) mg/dl Total Bilirubin 0.8 D (0.2-1) mg/dl AST 19 (15-37) U/L ALT 23 (12-78) U/L Alkaline Phosphatase 75 (45-117) U/L Total Protein 6.3 L (6.4-8.2) gm/dl Albumin 2.2 L (3.4-5.0) gm/dl Globulin 4.1 H (2.5-4.0) gm/dl Albumin/Globulin Ratio 0.5 L (0.9-2)
[2021-04-07] MEDS ORDERED: DOCUSATE SODIUM 100 MG CAP PO ONE (11:30)
--- NOTE | 2021-04-07 12:43 | Discharge Summary ---
Date of Service April 07, 2021 Admission HPI Per Admitting Provider 61-year-old gentleman presents with 4-day history of right upper quadrant pain. He noted some chills. He also noted a mass in his right upper quadrant. He denies nausea or vomiting. He has never had symptoms like this in the past. He denies acholic stools, pruritus, chest pain, shortness of breath. He denies dark urine or jaundice. He is having normal bowel movements. A CT scan demonstrates significant inflammation around the gallbladder, distended gallbladder, large stone. Principal Diagnosis Acute calculous cholecystitis Discharge Data Allergies Allergy/AdvReac Type Severity Reaction Status Date / Time acetaminophen [From Tylenol] AdvReac Intermediate ABD PAIN, Verified 04/05/21 21:55 CRAMPING Consultations 04/05/21 22:53 Consult General Surgery Stat Procedures Performed Operation Date: 04/06/21 08:20 Actual Procedures p Laparoscopic Cholecystectomy(Not Applicable) - Pro Alford MD Ordered Studies 04/05/21 21:37 CT abd pelvis wo con Urgent Hospital Course (1) Acute cholecystitis: Patient taken to operating room for laparoscopic cholecystectomy by Dr. Alford. He was found to have acute calculous cholecystitis with large gallstone and severe inflammation of gallbadder. patient tolerated procedure well and was transferred to recovery then to medical/surgical floor for postop care. His diet was advanced to regular diet, activity as tolerated, PO Oxycodone and Ibuprofen as needed for pain, and IV Zosyn was continued. POD # 1 patient evaluated and vitals stable, afebrile, postop pain moderate but controlled with alternating Oxycodone and Ibuprofen. Patient was discharged back to [facility] on POD # 1 in stable condition. Follow-up in surgery office in 2-3 weeks. Total Time Total Time Spent Total Time Spent (In Minutes): 30 Total Time Includes: Examination of the Patient, Discharge Planning, Medication Reconciliation and Communication With Other Providers Discharge Plan Discharge Items [facility]position[facility] Reason For Visit: ACUTE CHOLECYSTITIS Discharge Diagnosis: Acute calculous cholecystitis Activity: Per Instructions section Non-emergency contact: Surgeon Call non-emergency contact if: your pain is not controlled, your pain is worsening, your pain is concerning for you, you have a fever, your temperature is above 101, your wound has increased redness, your wound has increased drainage and your wound pain has increased Follow-up/Referrals: Osito THOMPSON [Primary Care Provider] - Diet: Regular Addtl Attending Provider Instructions: Post-Surgical ~Discharge Instructions Activity Recommendations: - lifting limitation: (20 pounds for 2 weeks), - exercise/sex/sports limit: (nonstrenuous for 2 weeks), - driving or machine use limit: (none for 1 week), - Shower/bathe limit: (may shower) Diet: - Resume previous diet SPECIAL CARE INSTRUCTIONS: - May shower. Let water run over area and pat dry. Do not submerge incisions underwater for 2 weeks. - Surgical glue will fall off on its own. - Call the surgeon's office with any questions or concerns - - (ex. temperature higher than 101 degrees F, excessive bleeding or pain). MEDICATIONS: - Resume previous medications unless instructed otherwise by your surgeon. - May take extra strength Ibuprofen as needed for mild to moderate pain. Limit duration of Ibuprofen and take with food. - Ibuprofen 600 mg every 6 hours with food - Percocet 1 every 4 hours, as needed for pain FOLLOW UP VISIT: - If not already scheduled, please call the office to schedule a two week follow-up appointment. Office number Pending Studies at Discharge: Yes (gallbladder pathology) Stand-Alone Forms: My [employer], Smoking Cessation Skilled Items Patient informed of condition?: Yes DNR: No Discharge Level of Care: Other Communicable Disease: No Discharge Prognosis: Stable Lines: None Urinary Catheter: No Medications and DC Order Prescriptions: Continued trazodone 50 mg Tablet 50 mg PO HS RF: 0 prazosin 1 mg Capsule 1 mg PO HS RF: 0 aspirin 81 mg Tablet,Delayed Release (Dr/Ec) 81 mg PO DAILY RF: 0 prazosin 5 mg Capsule 5 mg PO HS RF: 0 omeprazole 20 mg Capsule,Delayed Release(Dr/Ec) 20 mg PO DAILY RF: 0 prazosin 2 mg Capsule 2 mg PO HS RF: 0 levalbuterol tartrate [Xopenex HFA] 45 mcg/actuation Hfa Aerosol Inhaler 2 inh INHALATION Q4H PRN (Reason: Shortness Of Breath) RF: 0 Admission Data Admit Date/Time: 04/05/21 23:54 Attending Provider: Pro Alford Admit Provider: Pro Alford Primary Care Provider: Osito THOMPSON Other Providers: Pro Alford Other Interventions: Discharge Summary Assessment (RN) Last Done: 04/07/21 11:22
== END 2021-04-07 14:58 ==
LOC: ED 15:44 → 3E 15:44